=== PATIENT | male | born 1985 | race Caucasian/White ===

== ENCOUNTER 2019-03-08 14:54 | Emergency (ER) | payer OTHER, MEDICAID, SELFPAY ==
[2019-03-08 15:01] VITALS: BP 118/78; PULSE 69; RESP 18; TEMP 36.5; O2SAT 97; BMI 22.5
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
[2019-03-08 16:29] VITALS: BP 141/87; PULSE 79
== END 2019-03-08 16:31 | disposition home or self-care (01) ==
PROVIDERS: Emergency Provider Emergency Medicine
DX: T14.90XA Injury, unspecified, initial encounter (principal); V89.2XXA Person injured in unspecified motor-vehicle accident, traffic, initial encounter
CPT/HCPCS: 99281